=== PATIENT | male | born 1970 | race Caucasian/White ===

== ENCOUNTER 2022-07-14 07:07 | Emergency (ER) | payer OTHER, SELFPAY ==
[2022-07-14 07:09] VITALS: BP 148/82; PULSE 80; RESP 14; TEMP 36.3; O2SAT 98; BMI 44.3
[2022-07-14] MEDS: Diphth,Pertuss(Acell),Tet Vac 0.5 ML Vial IM (08:09)
[2022-07-14] MEDS: Lidocaine/Epi/Tetracaine 50 ML 1 APPLIC TOPICAL (08:10)
--- NOTE | 2022-07-14 08:54 | EX.ED.UPPERE ---
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 It was clean. Associated Symptoms Associated Symptoms: Negative for Parasthesia, Weakness or Loss of Funtion Narrative Narrative: [id number]. Isolated laceration to the left small finger. He was at work as a executive chef assistant today. Tetanus Immunization: >10 years [facility] Medical History no medical history no medical history Allergy/AdvReac Type Severity Reaction Status Date / Time No Known Allergies Allergy Verified 07/14/22 07:08 Social History Smoking Status: Never smoker ROS ROS ED Constitutional Constitutional ED: Denies chills or fever(s) Musculoskeletal Musculoskeletal: Reports extremity pain; Denies neck pain Integumentary Reports laceration; Denies Abrasions or rash Neurologic Neurologic: Denies paresthesias or weakness EXAM Physical Exam Const Vital Signs: 07/14/22 07:09 Temperature 97.4 F L Temperature Source Temporal Pulse Rate 80 Respiratory Rate 14 Blood Pressure 148/82 H Blood Pressure Mean 104 Pulse Ox 98 Oxygen Delivery Method Room Air Positive well nourished and well developed General Appearance ED: well developed and NAD Neck full ROM and supple Back/Spine normal ROM and normal to inspection Extremity full ROM Extremity Narrative: Left small finger: Laceration ulnar aspect of the distal phalanx. Extensor, FDP, FDS all intact. No nail injury. Neuro oriented x3, no focal motor deficits and no sensory deficits noted Sensorium / Orientation: alert Psych mental status grossly normal and thought process normal Skin Skin Narrative: Acute laceration to the left small finger, distal phalanx ulnar aspect just beyond the DIPJ. Some venous bleeding no arterial bleeding. No bone or tendon or other structures exposed except for subcutaneous fat. Clean appearing. Linear. 2 cm. Rashes: no rashes Procedures Lacerations Left little finger: Length: 2 cm Depth: Sub Q Shape: Linear Prep: Sterile Conditions and Chlorhexadine (Scrubbed) Laceration repair: Lidocaine with epi and Local (topical LET, in addition to 0.5 cc subcutaneous 2% lidocaine with epinephrine ) Number of Sutures/Prosperity: 4 Suture Information: Ethilon, Simple and 5-0 Discharge Plan Triage Chief Complaint: Laceration ED Provider: Arsh aDy Dx/Rx/DC Orders Clinical Impression: Laceration of left little finger, Immunization, tetanus-diphtheria Instructions: ED Laceration, Hand: All Closures Primary Care Provider: Nella Luna,Out of Referrals: Nella Doctor,Out of [Primary Care Provider] - 10 Day for suture removal Disposition Disposition: Home, Self Care
[2022-07-14] MEDS: Lidocaine 1% (30 ml sdv) 30 ML Vial INFILT (09:07)
== END 2022-07-14 09:20 | disposition home or self-care (01) ==
LOC: ED 09:03
PROVIDERS: Emergency Provider Emergency Medicine; Visit Provider Emergency Medicine
DX: S61.217A Laceration without foreign body of left little finger without damage to nail, initial encounter (principal); W31.82XA Contact with other commercial machinery, initial encounter; Y99.0 Civilian activity done for income or pay; Z23 Encounter for immunization
CPT/HCPCS: 12001; 90471; 90715; 99283